=== PATIENT | male | born 1990 | race Two or more races ===

== ENCOUNTER 2021-10-31 15:52 | Emergency (ER) | payer OTHER ==
[2021-10-31] MEDS ORDERED: Cephalexin 500 MG Cap PO STA (18:22)
[2021-10-31] MEDS ORDERED: Ketorolac 30 MG/ML SDV IM ONE (18:37)
== END 2021-10-31 18:51 | disposition home or self-care (01) ==
LOC: MW.ED 15:52
DX: S60.552A Superficial foreign body of left hand, initial encounter (principal); Z91.041 Radiographic dye allergy status; Z79.899 Other long term (current) drug therapy; W45.8XXA Other foreign body or object entering through skin, initial encounter
CPT/HCPCS: 10120; 73130; 96372; 99283; A9270; J1885